=== PATIENT | male | born 1980 | race Caucasian/White ===

== ENCOUNTER 2016-12-19 04:39 | Emergency (ER) | payer SELFPAY ==
[2016-12-19] MEDS ORDERED: Proparacaine 0.5% Ophth Soln 15 ML Bottle EYELF STA (04:47)
--- NOTE | 2016-12-19 04:58 | EDM.PDOC ---
ED HPI GENERAL MEDICAL PROBLEM - General Chief Complaint: Eye Problems Stated Complaint: DEBRIS IN LEFT EYE Time Seen by Provider: 12/19/16 05:00 Source of Information: Reports: Patient - History of Present Illness INITIAL COMMENTS - FREE TEXT/NARRATIVE: yesterday he felt saw dust get in his left eye. HE slept OK but now his left eye is irritated. no other complaints. - Related Data Allergies Allergy/AdvReac Type Severity Reaction Status Date / Time No Known Allergies Allergy Verified 12/19/16 04:50 Home Meds: Home Meds . [No Known Home Meds] 12/19/16 [History] Past Medical History - Past Health History Medical/Surgical History: Denies Medical/Surgical History - Past Surgical History GI Surgical History: Reports: Appendectomy Social & Family History - Family History Family Medical History: Noncontributory - Tobacco Use Smoking Status *Q: Never Smoker - Caffeine Use Caffeine Use: Reports: Soda - Recreational Drug Use Recreational Drug Use: No ED ROS GENERAL - Review of Systems Review Of Systems: See Below (no other injury noted; no welding exposure) ED EXAM GENERAL W FULL EYE - Physical Exam Exam: See Below Text/Narrative:: VA 20/40 OD; 20/40 OS alert left eye: marked conjunctival erythema no FB no focal dye uptake topical opthalmic anesthetic drops placed. Course - Vital Signs Last Recorded V/S: Last Vital Signs Temp 97.2 F 12/19/16 04:48 Pulse 77 12/19/16 04:48 Resp 20 12/19/16 04:48 BP 144/88 H 12/19/16 04:48 Pulse Ox 99 12/19/16 04:48 - Orders/Labs/Meds Orders: Active Orders 24 hr Category Date Time Status Erythromycin Base [Erythromycin 0.5% Ophth Oint] Med 12/19/16 05:06 Once 1 gm EYELF ONETIME ONE Meds: Medications Discontinued Medications Generic Name Dose Route Start Last Admin Trade Name Jeffryq PRN Reason Stop Dose Admin Erythromycin 1 gm 12/19/16 05:06 Erythromycin 0.5% Ophth Oint EYELF 12/19/16 05:07 ONETIME ONE Proparacaine HCl 1 ml 12/19/16 04:47 12/19/16 05:05 Proparacaine 0.5% Ophth Soln EYELF 12/19/16 04:48 1 ml NOW STA Administration Departure - Departure Time of Disposition: 05:09 Disposition: Home, Self-Care 01 Condition: Good Clinical Impression: Chemical conjunctivitis of left eye - Discharge Information Referrals: PCP,None [Primary Care Provider] - Forms: ED Department Discharge Additional Instructions: your blood pressure is up slightly; a recheck when feeling better is recommended. erythromycin eye ointment bid x seven days Timmy Berry MD - My Orders Last 24 Hours: My Active Orders 12/19/16 05:06 Erythromycin Base [Erythromycin 0.5% Ophth Oint] 1 gm EYELF ONETIME ONE - Assessment/Plan Last 24 Hours: My Active Orders 12/19/16 05:06 Erythromycin Base [Erythromycin 0.5% Ophth Oint] 1 gm EYELF ONETIME ONE
[2016-12-19] MEDS ORDERED: Erythromycin Base 0.5% Ophth Oint 1 GM Tube EYELF ONE (05:06)
== END 2016-12-19 05:25 | disposition home or self-care (01) ==
LOC: MW.ED 04:39
DX: H10.12 Acute atopic conjunctivitis, left eye (principal)
CPT/HCPCS: 99283; A9270; 99282